=== PATIENT | female | born 1985 | race Asian ===

== ENCOUNTER 2019-08-31 00:13 | Inpatient (IN) | payer OTHER ==
[~2019-08-31] VITALS: Ht 147.3 cm; Wt 65.5 kg
[2019-08-31] VITALS (8 sets, daily range): BP systolic 134–151; BP diastolic 75–87
[2019-08-31 01:04] LABS: BASO # 0.1 x10^3/uL (0.0-0.2); BASO % 1 % (0-3); EOS # 0.2 x10^3/uL (0.0-0.7); EOS % 4 % (0-3); HEMATOCRIT 46.3 % (36.0-47.0); HEMOGLOBIN 15.9 g/dL (12.0-15.5); LYMPH # 2.4 x10^3/uL (1.0-4.8); LYMPH % 37 % (24-48); MEAN CORPUSCULAR HEMOGLOBIN 31 pg (25-35); MEAN CORPUSCULAR HGB CONC 34 g/dL (31-37); MEAN CORPUSCULAR VOLUME 90 fL (79-100); MONO # 0.4 x10^3/uL (0.0-1.1); MONO % 7 % (0-9); NEUT # 3.4 x10^3/uL (1.8-7.7); NEUT % 52 % (31-73); PLATELET COUNT 325 x10^3/uL (140-400); RED BLOOD COUNT 5.13 x10^6/uL (3.50-5.40); RED CELL DISTRIBUTION WIDTH 13.4 % (11.5-14.5); WHITE BLOOD COUNT 6.6 x10^3/uL (4.0-11.0)
[2019-08-31 01:12] LABS: BILIRUBIN,URINE NEGATIVE (NEG); CLARITY,URINE CLEAR; COLOR,URINE YELLOW; NITRITE,URINE NEGATIVE (NEG); PROTEIN,URINE NEGATIVE (NEG-TRACE)
[2019-08-31 01:17] LABS: CALCIUM 8.8 mg/dL (8.5-10.1); CREATININE 0.8 mg/dL (0.6-1.0); GFR 82.6; POTASSIUM 3.7 mmol/L (3.5-5.1)
[2019-08-31 01:19] LABS: BACTERIA,URINE MODERATE /HPF (0-FEW); RBC,URINE OCC /HPF (0-2); SQUAMOUS EPITHELIAL CELL,UR MOD /LPF
[2019-08-31 01:23] LABS: ALBUMIN/GLOBULIN RATIO 0.6 (1.0-1.7); TOTAL BILIRUBIN 0.3 mg/dL (0.2-1.0); TOTAL PROTEIN 7.7 g/dL (6.4-8.2)
[2019-08-31] MEDS ORDERED: MORPHINE SULFATE 4 MG/ML VIAL. IV ONE (02:00)
[2019-08-31] MEDS ORDERED: ONDANSETRON PF 4 MG/2 ML VIAL. IV ONE (02:00)
[2019-08-31] MEDS ORDERED: PIP/TAZO PER PHARMACY MC PRN (02:30)
[2019-08-31] MEDS ORDERED: CONTRAST GIVEN. MC PRN (02:45)
[2019-08-31] MEDS ORDERED: IOHEXOL 300 MG/ML 100ML VIAL. IV ONE (03:00)
--- NOTE | 2019-08-31 03:00 | RAD ---
Ultrasound the abdomen limited. HISTORY: Right upper quadrant tenderness, right upper quadrant pain Ultrasound was used to evaluate right upper quadrant of the abdomen. The mid pancreas was normal in appearance, portions of the head and tail of the pancreas were obscured. A liver lesion is not identified. Liver was normal in size. Mild fatty liver changes possible. There are gallstones in the gallbladder. Gallbladder wall was mildly thickened at 4 mm. Common duct is prominent measuring 1.1 cm. Right kidney was 12.5 cm in length without a mass or hydronephrosis. IMPRESSION: 1. Cholelithiasis with thickening of the gallbladder wall suggesting cholecystitis. 2. Dilated common duct. Electronically signed by: Justin Adrian MD (08/31/2019 2:57 AM) [facility]
[2019-08-31] MEDS: PIPERACILLIN/TAZOBACTAM 3.375 GM in IV NORMAL SALINE 50ML 50 ML IV SCH ×4 (03:04→18:43)
--- NOTE | 2019-08-31 03:15 | PHYS DOC ---
Past Medical History Past Medical History: Kidney Stone Past Surgical History: No Surgical History Smoking Status: Never Smoker Alcohol Use: None General Adult EDM: Chief Complaint: ABDOMINAL PAIN HPI: HPI: Patient is a 33 year old female who presents to the ED with a chief complaint of right upper abdominal tenderness. Patient states that the pain started around 10:00 this night. Patient recently delivered a baby 1 week ago. Patient does complain of nausea and abdominal pain. Patient denies fever, chills, anum sea, vomiting, chest pain, shortness of breath. Review of Systems: Review of Systems: Constitutional: Denies fever or chills. [] Eyes: Denies change in visual acuity. [] HENT: Denies nasal congestion or sore throat. [] Respiratory: Denies cough or shortness of breath. [] Cardiovascular: Denies chest pain or edema. [] GI: Complains of right upper quadrant tenderness [] : Denies dysuria. [] Neurologic: Denies headache, focal weakness or sensory changes. [] Heart Score: Risk Factors: Risk Factors: DM, Current or recent (<one month) smoker, HTN, HLP, family history of CAD, obesity. Risk Scores: Score 0 - 3: 2.5% MACE over next 6 weeks - Discharge Home Score 4 - 6: 20.3% MACE over next 6 weeks - Admit for Clinical Observation Score 7 - 10: 72.7% MACE over next 6 weeks - Early Invasive Strategies Current Medications: Current Medications Medications (Trade) Dose Ordered Sig/Sal Start Time Stop Time Status Last Admin Dose Admin Info (CONTRAST GIVEN -- Rx MONITORING) 1 each PRN DAILY PRN 08/31/19 02:45 09/02/19 02:44 Iohexol (Omnipaque 300 Mg/ml) 75 ml 1X ONCE 08/31/19 03:00 08/31/19 03:01 DC Morphine Sulfate (Morphine Sulfate) 4 mg 1X ONCE 08/31/19 02:00 08/31/19 02:01 DC 08/31/19 01:54 4 MG Ondansetron HCl (Zofran) 4 mg 1X ONCE 08/31/19 02:00 08/31/19 02:01 DC 08/31/19 01:54 4 MG Piperacillin Sod/ Tazobactam Sod (Zosyn Per Pharmacy) 1 each PRN DAILY PRN 08/31/19 02:30 Piperacillin Sod/ Tazobactam Sod 3.375 gm/Sodium Chloride 50 ml @ 100 mls/hr Q6HRS 08/31/19 02:30 08/31/19 03:04 100 MLS/HR Allergies: Allergies: Allergies Coded Allergies Type Severity Reaction Last Updated Verified No Known Drug Allergies 08/31/19 No Physical Exam: PE: Constitutional: Well developed, well nourished, no acute distress, non-toxic appearance. [] HENT: Normocephalic, atraumatic Eyes: EOMI Neck: Normal range of motion, Supple Cardiovascular: Heart rate regular rhythm Lungs & Thorax: Bilateral breath sounds clear to auscultation [] Abdomen: Right upper quadrant tenderness Extremities: No tenderness, ROM intact Neurologic: Alert and oriented X 3 Current Patient Data: Labs: Laboratory Tests Test 08/31/19 00:48 08/31/19 00:53 08/31/19 01:05 Urine Collection Type Unknown Urine Color Yellow Urine Clarity Clear Urine pH 6.0 (<5.0-8.0) Urine Specific [place] 1.015 (1.000-1.030) Urine Protein Negative mg/dL (NEG-TRACE) Urine Glucose (UA) Negative mg/dL (NEG) Urine Ketones (Stick) Negative mg/dL (NEG) Urine Blood Moderate (NEG) Urine Nitrite Negative (NEG) Urine Bilirubin Negative (NEG) Urine Urobilinogen Dipstick 1.0 mg/dL (0.2 mg/dL) Urine Leukocyte Esterase Small (NEG) Urine RBC Occ /HPF (0-2) Urine WBC 11-20 /HPF (0-4) Urine Squamous Epithelial Cells Mod /LPF Urine Bacteria Moderate /HPF (0-FEW) Urine Mucus Mod /LPF White Blood Count 6.6 x10^3/uL (4.0-11.0) Red Blood Count 5.13 x10^6/uL (3.50-5.40) Hemoglobin 15.9 g/dL (12.0-15.5) H Hematocrit 46.3 % (36.0-47.0) Mean Corpuscular Volume 90 fL (79-100) Mean Corpuscular Hemoglobin 31 pg (25-35) Mean Corpuscular Hemoglobin Concent 34 g/dL (31-37) Red Cell Distribution Width 13.4 % (11.5-14.5) Platelet Count 325 x10^3/uL (140-400) Neutrophils (%) (Auto) 52 % (31-73) Lymphocytes (%) (Auto) 37 % (24-48) Monocytes (%) (Auto) 7 % (0-9) Eosinophils (%) (Auto) 4 % (0-3) H Basophils (%) (Auto) 1 % (0-3) Neutrophils # (Auto) 3.4 x10^3/uL (1.8-7.7) Lymphocytes # (Auto) 2.4 x10^3/uL (1.0-4.8) Monocytes # (Auto) 0.4 x10^3/uL (0.0-1.1) Eosinophils # (Auto) 0.2 x10^3/uL (0.0-0.7) Basophils # (Auto) 0.1 x10^3/uL (0.0-0.2) Sodium Level 138 mmol/L (136-145) Potassium Level 3.7 mmol/L (3.5-5.1) Chloride Level 103 mmol/L (98-107) Carbon Dioxide Level 27 mmol/L (21-32) Anion Gap 8 (6-14) Blood Urea Nitrogen 13 mg/dL (7-20) Creatinine 0.8 mg/dL (0.6-1.0) Estimated GFR (Cockcroft-Gault) 82.6 BUN/Creatinine Ratio 16 (6-20) Glucose Level 115 mg/dL (70-99) H Lactic Acid Level 1.6 mmol/L (0.4-2.0) Calcium Level 8.8 mg/dL (8.5-10.1) Total Bilirubin 0.3 mg/dL (0.2-1.0) Aspartate Amino Transferase (AST) 59 U/L (15-37) H Alanine Aminotransferase (ALT) 51 U/L (14-59) Alkaline Phosphatase 122 U/L (46-116) H Total Protein 7.7 g/dL (6.4-8.2) Albumin 3.0 g/dL (3.4-5.0) L Albumin/Globulin Ratio 0.6 (1.0-1.7) L Lipase 139 U/L (73-393) POC Urine HCG, Qualitative Hcg positive (Negative) Laboratory Tests 08/31/19 00:53 Laboratory Tests 08/31/19 00:53 Vital Signs: Vital Signs Date Time Temp Pulse Resp B/P (MAP) Pulse Ox O2 Delivery O2 Flow Rate FiO2 08/31/19 01:54 16 98 Room Air 08/31/19 00:38 97.5 56 158/79 (105) 97.5 EKG: EKG: [] Radiology/Procedures: Radiology/Procedures: [] Impression: US ABDOMEN Ultrasound was used to evaluate right upper quadrant of the abdomen. The mid pancreas was normal in appearance, portions of the head and tail of the pancreas were obscured. A liver lesion is not identified. Liver was normal in size. Mild fatty liver changes possible. There are gallstones in the gallbladder. Gallbladder wall was mildly thickened at 4 mm. Common duct is prominent measuring 1.1 cm. Right kidney was 12.5 cm in length without a mass or hydronephrosis. IMPRESSION: 1. Cholelithiasis with thickening of the gallbladder wall suggesting cholecystitis. 2. Dilated common duct. CT ABD/PELVIS IMPRESSION: 1. Large uterus. 2. Decreased density towards the fundus which could be normal variation although retained products are possible. 3. Thickening of the gallbladder wall suggesting cholecystitis. 4. Dilated common duct. 5. Trace of pleural effusions with mild atelectasis in the lung bases. Course & Med Decision Making: Course & Med Decision Making Pertinent Labs and Imaging studies reviewed. (See chart for details) Ordered labs, ultrasound of the abdomen. Patient is given IV fluids, IV Zofran, IV morphine Ultrasound shows Ultrasound was used to evaluate right upper quadrant of the abdomen. The mid pancreas was normal in appearance, portions of the head and tail of the pancreas were obscured. A liver lesion is not identified. Liver was normal in size. Mild fatty liver changes possible. There are gallstones in the gallbladder. Gallbladder wall was mildly thickened at 4 mm. Common duct is prominent measuring 1.1 cm. Right kidney was 12.5 cm in length without a mass or hydronephrosis. IMPRESSION: 1. Cholelithiasis with thickening of the gallbladder wall suggesting cholecystitis. 2. Dilated common duct. I have also ordered a CT of the abdomen and pelvis. Patient will be admitted for further evaluation and treatment. I will discuss case with general surgery on-call. Discussed case with Dr. Gray. Patient will be admitted to the hospitalist service. Critical care: 35 minutes Time is inclusive of interpretation of labs, interpretation of imaging, consul tation with other physicians Patient needed continuous cardiovascular monitoring secondary to acute abdomen due to cholecystitis. Madelyn Disclaimer: Madelyn Disclaimer: This electronic medical record was generated, in whole or in part, using a voice recognition dictation system. Departure Departure Impression: Primary Impression: Cholecystitis Disposition: ADMITTED INPATIENT Admitting Physician: TRISHA Condition: GOOD Referrals: NO PCP (PCP) Justicifation of Admission Dx: Justifications for Admission: Justification of Admission Dx: Yes Comments: Acute Cholecystitis DARNELL SOTELO DO Aug 31, 2019 03:15
--- NOTE | 2019-08-31 04:08 | RAD ---
CT abdomen and pelvis with contrast. HISTORY: Cholecystitis CT abdomen pelvis was done using 75 mL Omnipaque 300 contrast. Lung bases are clear except for mild dependent atelectasis. There is a trace of pleural effusion on each side. There are 2 small nonspecific low-density foci in the spleen. A liver lesion is not identified. There is distention of the gallbladder with thickening of the gallbladder wall. This gallstones noted at ultrasound are not optimally visualized on CT. There is no mass or hydronephrosis in the kidneys. Adrenal glands are normal. A pancreatic lesion is not identified. Common duct is dilated. There is no adenopathy. There is no ascites. Appendix is normal. Uterus is enlarged possibly . There is low-density in the fundus of the uterus which could be just edema but retained products could have this pattern. There is moderate stool in the colon. Bladder is unremarkable. IMPRESSION: 1. Large uterus. 2. Decreased density towards the fundus which could be normal variation although retained products are possible. 3. Thickening of the gallbladder wall suggesting cholecystitis. 4. Dilated common duct. 5. Trace of pleural effusions with mild atelectasis in the lung bases. PQRS Compliance Statement: One or more of the following individualized dose reduction techniques were utilized for this examination: 1. Automated exposure control 2. Adjustment of the mA and/or kV according to patient size 3. Use of iterative reconstruction technique Electronically signed by: Justin Adrian MD (08/31/2019 4:06 AM) [facility]
--- NOTE | 2019-08-31 05:50 | NUR ---
Patient admitted to room 416 per wheelchair from ER. Admitting diagnosis: acute cholecysitis. Patient is alert and oriented x4. NPO. In no acute distress. surgical consult. Will continue to monitor.
[2019-08-31] MEDS ORDERED: ONDANSETRON PF 4 MG/2 ML VIAL. IVP PRN (09:15)
[2019-08-31] MEDS ORDERED: IV NORMAL SALINE 1000ML BAG 1,000 ML IV ONE (09:15)
--- NOTE | 2019-08-31 09:28 | PDOC2 ---
CONSULT Date of Consult Date of Consult DATE: 08/31/19 TIME: 09:24 Reason for Consult Reason for Consult: Cholecystitis Referring Physician Referring Physician: Brianda Identification/Chief Complaint Chief Complaint Abdominal pain Source Source: Chart review, Patient History of Present Illness Reason for Visit: 33-year-old [place] female interview conducted via machining engineer. She complains of right upper quadrant abdominal pain with some nausea. Recently delivered a baby 1 week ago vaginally since that time is had abdominal discomfort Past Medical History Cardiovascular: No pertinent hx Pulmonary: No pertinent hx GI: No pertinent hx Heme/Onc: No pertinent hx Hepatobiliary: No pertinent hx Psych: No pertinent hx Rheumatologic: No pertinent hx Infectious disease: No pertinent hx ENT: No pertinent hx Renal/: No pertinent hx Endocrine: No pertinent hx Dermatology: No pertinent hx Past Surgical History Past Surgical History: No pertinent history Family History Family History: No Significant Social History No ALCOHOL: none Drugs: None Lives: with Family Current Problem List Problem List Problems Medical Problems: (1) Cholecystitis Status: Acute Current Medications Current Medications Current Medications Ondansetron HCl (Zofran) 4 mg 1X ONCE IV Last administered on 08/31/19at 01:54; Start 08/31/19 at 02:00; Stop 08/31/19 at 02:01; Status DC Morphine Sulfate (Morphine Sulfate) 4 mg 1X ONCE IV Last administered on 08/31/19at 01:54; Start 08/31/19 at 02:00; Stop 08/31/19 at 02:01; Status DC Piperacillin Sod/ Tazobactam Sod (Zosyn Per Pharmacy) 1 each PRN DAILY PRN MC SEE COMMENTS; Start 08/31/19 at 02:30 Iohexol (Omnipaque 300 Mg/ml) 75 ml 1X ONCE IV ; Start 08/31/19 at 03:00; Stop 08/31/19 at 03:01; Status DC Piperacillin Sod/ Tazobactam Sod 3.375 gm/Sodium Chloride 50 ml @ 100 mls/hr Q6HRS IV Last administered on 08/31/19at 06:47; Start 08/31/19 at 02:30 Info (CONTRAST GIVEN -- Rx MONITORING) 1 each PRN DAILY PRN MC SEE COMMENTS; Start 08/31/19 at 02:45; Stop 09/02/19 at 02:44 Morphine Sulfate (Morphine Sulfate) 4 mg PRN Q2HR PRN IV PAIN; Start 08/31/19 at 09:15 Ondansetron HCl (Zofran) 4 mg PRN Q6HRS PRN IVP NAUSEA/VOMITING; Start 08/31/19 at 09:15 Sodium Chloride 1,000 ml @ 150 mls/hr Q6H40M IV ; Start 08/31/19 at 09:15 Sodium Chloride 1,000 ml @ 1,000 mls/hr 1X ONCE IV ; Start 08/31/19 at 09:15; Stop 08/31/19 at 10:14 Allergies Allergies: Coded Allergies: No Known Drug Allergies (Unverified , 08/31/19) ROS Gastrointestinal: Yes Nausea, Yes Abdominal Pain Physical Exam General: Alert, Oriented X3, Cooperative, moderate distress HEENT: Atraumatic Lungs: Clear to auscultation, Normal air movement Heart: Regular rate, No murmurs Abdomen: Normal bowel sounds, Soft, Other (Tender palpation right upper quadrant) Extremities: No edema Skin: No significant lesion Neuro: Normal speech Psych/Mental Status: Mental status NL Vitals VITALS Vital Signs Date Time Temp Pulse Resp B/P (MAP) Pulse Ox O2 Delivery O2 Flow Rate FiO2 08/31/19 07:00 98.2 50 16 148/84 (105) 96 Room Air 98.2 Labs Labs Laboratory Tests Test 08/31/19 00:48 08/31/19 00:53 08/31/19 01:05 Urine Collection Type Unknown Urine Color Yellow Urine Clarity Clear Urine pH 6.0 (<5.0-8.0) Urine Specific [place] 1.015 (1.000-1.030) Urine Protein Negative mg/dL (NEG-TRACE) Urine Glucose (UA) Negative mg/dL (NEG) Urine Ketones (Stick) Negative mg/dL (NEG) Urine Blood Moderate (NEG) Urine Nitrite Negative (NEG) Urine Bilirubin Negative (NEG) Urine Urobilinogen Dipstick 1.0 mg/dL (0.2 mg/dL) Urine Leukocyte Esterase Small (NEG) Urine RBC Occ /HPF (0-2) Urine WBC 11-20 /HPF (0-4) Urine Squamous Epithelial Cells Mod /LPF Urine Bacteria Moderate /HPF (0-FEW) Urine Mucus Mod /LPF White Blood Count 6.6 x10^3/uL (4.0-11.0) Red Blood Count 5.13 x10^6/uL (3.50-5.40) Hemoglobin 15.9 g/dL (12.0-15.5) Hematocrit 46.3 % (36.0-47.0) Mean Corpuscular Volume 90 fL (79-100) Mean Corpuscular Hemoglobin 31 pg (25-35) Mean Corpuscular Hemoglobin Concent 34 g/dL (31-37) Red Cell Distribution Width 13.4 % (11.5-14.5) Platelet Count 325 x10^3/uL (140-400) Neutrophils (%) (Auto) 52 % (31-73) Lymphocytes (%) (Auto) 37 % (24-48) Monocytes (%) (Auto) 7 % (0-9) Eosinophils (%) (Auto) 4 % (0-3) Basophils (%) (Auto) 1 % (0-3) Neutrophils # (Auto) 3.4 x10^3/uL (1.8-7.7) Lymphocytes # (Auto) 2.4 x10^3/uL (1.0-4.8) Monocytes # (Auto) 0.4 x10^3/uL (0.0-1.1) Eosinophils # (Auto) 0.2 x10^3/uL (0.0-0.7) Basophils # (Auto) 0.1 x10^3/uL (0.0-0.2) Sodium Level 138 mmol/L (136-145) Potassium Level 3.7 mmol/L (3.5-5.1) Chloride Level 103 mmol/L (98-107) Carbon Dioxide Level 27 mmol/L (21-32) Anion Gap 8 (6-14) Blood Urea Nitrogen 13 mg/dL (7-20) Creatinine 0.8 mg/dL (0.6-1.0) Estimated GFR (Cockcroft-Gault) 82.6 BUN/Creatinine Ratio 16 (6-20) Glucose Level 115 mg/dL (70-99) Lactic Acid Level 1.6 mmol/L (0.4-2.0) Calcium Level 8.8 mg/dL (8.5-10.1) Total Bilirubin 0.3 mg/dL (0.2-1.0) Aspartate Amino Transf (AST/SGOT) 59 U/L (15-37) Alanine Aminotransferase (ALT/SGPT) 51 U/L (14-59) Alkaline Phosphatase 122 U/L (46-116) Total Protein 7.7 g/dL (6.4-8.2) Albumin 3.0 g/dL (3.4-5.0) Albumin/Globulin Ratio 0.6 (1.0-1.7) Lipase 139 U/L (73-393) Bedside Urine HCG, Qualitative Hcg positive (Negative) Laboratory Tests Test 08/31/19 00:48 08/31/19 00:53 08/31/19 01:05 Urine Collection Type Unknown Urine Color Yellow Urine Clarity Clear Urine pH 6.0 (<5.0-8.0) Urine Specific [place] 1.015 (1.000-1.030) Urine Protein Negative mg/dL (NEG-TRACE) Urine Glucose (UA) Negative mg/dL (NEG) Urine Ketones (Stick) Negative mg/dL (NEG) Urine Blood Moderate (NEG) Urine Nitrite Negative (NEG) Urine Bilirubin Negative (NEG) Urine Urobilinogen Dipstick 1.0 mg/dL (0.2 mg/dL) Urine Leukocyte Esterase Small (NEG) Urine RBC Occ /HPF (0-2) Urine WBC 11-20 /HPF (0-4) Urine Squamous Epithelial Cells Mod /LPF Urine Bacteria Moderate /HPF (0-FEW) Urine Mucus Mod /LPF White Blood Count 6.6 x10^3/uL (4.0-11.0) Red Blood Count 5.13 x10^6/uL (3.50-5.40) Hemoglobin 15.9 g/dL (12.0-15.5) Hematocrit 46.3 % (36.0-47.0) Mean Corpuscular Volume 90 fL (79-100) Mean Corpuscular Hemoglobin 31 pg (25-35) Mean Corpuscular Hemoglobin Concent 34 g/dL (31-37) Red Cell Distribution Width 13.4 % (11.5-14.5) Platelet Count 325 x10^3/uL (140-400) Neutrophils (%) (Auto) 52 % (31-73) Lymphocytes (%) (Auto) 37 % (24-48) Monocytes (%) (Auto) 7 % (0-9) Eosinophils (%) (Auto) 4 % (0-3) Basophils (%) (Auto) 1 % (0-3) Neutrophils # (Auto) 3.4 x10^3/uL (1.8-7.7) Lymphocytes # (Auto) 2.4 x10^3/uL (1.0-4.8) Monocytes # (Auto) 0.4 x10^3/uL (0.0-1.1) Eosinophils # (Auto) 0.2 x10^3/uL (0.0-0.7) Basophils # (Auto) 0.1 x10^3/uL (0.0-0.2) Sodium Level 138 mmol/L (136-145) Potassium Level 3.7 mmol/L (3.5-5.1) Chloride Level 103 mmol/L (98-107) Carbon Dioxide Level 27 mmol/L (21-32) Anion Gap 8 (6-14) Blood Urea Nitrogen 13 mg/dL (7-20) Creatinine 0.8 mg/dL (0.6-1.0) Estimated GFR (Cockcroft-Gault) 82.6 BUN/Creatinine Ratio 16 (6-20) Glucose Level 115 mg/dL (70-99) Lactic Acid Level 1.6 mmol/L (0.4-2.0) Calcium Level 8.8 mg/dL (8.5-10.1) Total Bilirubin 0.3 mg/dL (0.2-1.0) Aspartate Amino Transf (AST/SGOT) 59 U/L (15-37) Alanine Aminotransferase (ALT/SGPT) 51 U/L (14-59) Alkaline Phosphatase 122 U/L (46-116) Total Protein 7.7 g/dL (6.4-8.2) Albumin 3.0 g/dL (3.4-5.0) Albumin/Globulin Ratio 0.6 (1.0-1.7) Lipase 139 U/L (73-393) Bedside Urine HCG, Qualitative Hcg positive (Negative) Images Images Ultrasound and CT scan show signs consistent with acute cholecystitis with thickened gallbladder wall and sludge within the gallbladder she also has mildly dilated common bile duct Assessment/Plan Assessment/Plan Acute cholecystitis plan for laparoscopic cholecystectomy with intraoperative cholangiograms this was discussed with the patient through an machining engineer WILTON NANCE MD Aug 31, 2019 09:28
--- NOTE | 2019-08-31 09:40 | PDOC1 ---
History and Physical Date of Admission Date of Admission DATE: 08/31/19 TIME: 09:34 Source Source: Chart review, Patient History of Present Illness History of Present Illness Tanisha Marrero, is a 33 year old female who presents to the ED with a chief complaint of right upper abdominal tenderness. Patient states that the pain started around 10:00 this night. Patient recently delivered a baby 1 week ago. Patient does complain of nausea and abdominal pain. Patient denies fever, chills, nausea, vomiting, chest pain, shortness of breath. I called [facility] and had a resident review the chart from 6 days ago, DC home after normal vaginal delivery. No abx given, she did well and had no complications Past Medical History Cardiovascular: No pertinent hx Pulmonary: No pertinent hx GI: No pertinent hx Heme/Onc: No pertinent hx Hepatobiliary: No pertinent hx Psych: No pertinent hx Rheumatologic: No pertinent hx Infectious disease: No pertinent hx ENT: No pertinent hx Renal/: No pertinent hx Endocrine: No pertinent hx Dermatology: No pertinent hx Past Surgical History Past Surgical History: No pertinent history Family History Family History: No Significant Social History Smoke: No ALCOHOL: none Drugs: None Current Problem List Problem List Problems Medical Problems: (1) Cholecystitis Status: Acute Current Medications Current Medications Current Medications Ondansetron HCl (Zofran) 4 mg 1X ONCE IV Last administered on 08/31/19at 01:54; Start 08/31/19 at 02:00; Stop 08/31/19 at 02:01; Status DC Morphine Sulfate (Morphine Sulfate) 4 mg 1X ONCE IV Last administered on 08/31/19at 01:54; Start 08/31/19 at 02:00; Stop 08/31/19 at 02:01; Status DC Piperacillin Sod/ Tazobactam Sod (Zosyn Per Pharmacy) 1 each PRN DAILY PRN MC SEE COMMENTS; Start 08/31/19 at 02:30 Iohexol (Omnipaque 300 Mg/ml) 75 ml 1X ONCE IV ; Start 08/31/19 at 03:00; Stop 08/31/19 at 03:01; Status DC Piperacillin Sod/ Tazobactam Sod 3.375 gm/Sodium Chloride 50 ml @ 100 mls/hr Q6HRS IV Last administered on 08/31/19at 06:47; Start 08/31/19 at 02:30 Info (CONTRAST GIVEN -- Rx MONITORING) 1 each PRN DAILY PRN MC SEE COMMENTS; Start 08/31/19 at 02:45; Stop 09/02/19 at 02:44 Morphine Sulfate (Morphine Sulfate) 4 mg PRN Q2HR PRN IV PAIN; Start 08/31/19 at 09:15 Ondansetron HCl (Zofran) 4 mg PRN Q6HRS PRN IVP NAUSEA/VOMITING; Start 08/31/19 at 09:15 Sodium Chloride 1,000 ml @ 150 mls/hr Q6H40M IV ; Start 08/31/19 at 09:15 Sodium Chloride 1,000 ml @ 1,000 mls/hr 1X ONCE IV ; Start 08/31/19 at 09:15; Stop 08/31/19 at 10:14 Allergies Allergies: Coded Allergies: No Known Drug Allergies (Unverified , 08/31/19) ROS General: No: Chills, Night Sweats, Fatigue, Malaise, Appetite, Other PSYCHOLOGICAL ROS: No: Anxiety, Behavioral Disorder, Concentration difficultie, Decreased libido, Depression, Disorientation, Hallucinations, Hostility, Irritablity, Memory difficulties, Mood Swings, Obsessive thoughts, Physical abuse, Sexual abuse, Sleep disturbances, Suicidal ideation, Other Eyes: No Blurry vision, No Decreased vision, No Double vision, No Dry eyes, No Excessive tearing, No Eye Pain, No Itchy Eyes, No Loss of vision, No Photophobia, No Scotomata, No Uses contacts, No Uses glasses, No Other HEENT: No: Heacaches, Visual Changes, Hearing change, Nasal congestion, Nasal discharge, Oral lesions, Sinus pain, Sore Throat, Epistaxis, Sneezing, Snoring, Tinnitus, Vertigo, Vocal changes, Other Respiratory: No: Cough, Hemoptysis, Orthopnea, Pleuritic Pain, Shortness of breath, SOB with excertion, Sputum Changes, Stridor, Tachypnea, Wheezing, Other Cardiovascular: No Chest Pain, No Palpitations, No Orthopnea, No Paroxysmal Noc. Dyspnea, No Edema, No Lt Headedness, No Other Gastrointestinal: No Nausea, No Vomiting, No Abdominal Pain, No Diarrhea, No Constipation, No Melena, No Hematochezia, No Other Genitourinary: No Dysuria, No Frequency, No Incontinence, No Hematuria, No Retention, No Discharge, No Urgency, No Pain, No Flank Pain, No Other, No , No , No , No , No , No , No Musculoskeletal: No Gait Disturbance, No Joint Pain, No Joint Stiffness, No Joint Swelling, No Muscle Pain, No Muscular Weakness, No Pain In:, No Swelling In:, No Other Neurological: No Behavorial Changes, No Bowel/Bladder ControlChng, No Confusion, No Dizziness, No Gait Disturbance, No Headaches, No Impaired Coord/balance, No Memory Loss, No Numbness/Tingling, No Seizures, No Speech Problems, No Tremors, No Visual Changes, No Weakness, No Other Skin: Yes Dry Skin; No Eczema, No Hair Changes, No Lumps, No Mole Changes, No Mottling, No Nail Changes, No Pruritus, No Rash, No Skin Lesion Changes, No Other, No Acne Physical Exam General: Alert, Oriented X3, Cooperative, No acute distress HEENT: Atraumatic, PERRLA Lungs: Clear to auscultation Heart: S1S2, RRR, no murmurs Abdomen: Normal bowel sounds, Soft Extremities: No clubbing, No edema Skin: No breakdown Neuro: Normal speech, Normal tone, Sensation intact Psych/Mental Status: Mental status NL, Mood NL Vitals Vitals Vital Signs Date Time Temp Pulse Resp B/P (MAP) Pulse Ox O2 Delivery O2 Flow Rate FiO2 08/31/19 07:00 98.2 50 16 148/84 (105) 96 Room Air 98.2 Labs Labs Laboratory Tests Test 08/31/19 00:48 08/31/19 00:53 08/31/19 01:05 Urine Collection Type Unknown Urine Color Yellow Urine Clarity Clear Urine pH 6.0 (<5.0-8.0) Urine Specific [place] 1.015 (1.000-1.030) Urine Protein Negative mg/dL (NEG-TRACE) Urine Glucose (UA) Negative mg/dL (NEG) Urine Ketones (Stick) Negative mg/dL (NEG) Urine Blood Moderate (NEG) Urine Nitrite Negative (NEG) Urine Bilirubin Negative (NEG) Urine Urobilinogen Dipstick 1.0 mg/dL (0.2 mg/dL) Urine Leukocyte Esterase Small (NEG) Urine RBC Occ /HPF (0-2) Urine WBC 11-20 /HPF (0-4) Urine Squamous Epithelial Cells Mod /LPF Urine Bacteria Moderate /HPF (0-FEW) Urine Mucus Mod /LPF White Blood Count 6.6 x10^3/uL (4.0-11.0) Red Blood Count 5.13 x10^6/uL (3.50-5.40) Hemoglobin 15.9 g/dL (12.0-15.5) Hematocrit 46.3 % (36.0-47.0) Mean Corpuscular Volume 90 fL (79-100) Mean Corpuscular Hemoglobin 31 pg (25-35) Mean Corpuscular Hemoglobin Concent 34 g/dL (31-37) Red Cell Distribution Width 13.4 % (11.5-14.5) Platelet Count 325 x10^3/uL (140-400) Neutrophils (%) (Auto) 52 % (31-73) Lymphocytes (%) (Auto) 37 % (24-48) Monocytes (%) (Auto) 7 % (0-9) Eosinophils (%) (Auto) 4 % (0-3) Basophils (%) (Auto) 1 % (0-3) Neutrophils # (Auto) 3.4 x10^3/uL (1.8-7.7) Lymphocytes # (Auto) 2.4 x10^3/uL (1.0-4.8) Monocytes # (Auto) 0.4 x10^3/uL (0.0-1.1) Eosinophils # (Auto) 0.2 x10^3/uL (0.0-0.7) Basophils # (Auto) 0.1 x10^3/uL (0.0-0.2) Sodium Level 138 mmol/L (136-145) Potassium Level 3.7 mmol/L (3.5-5.1) Chloride Level 103 mmol/L (98-107) Carbon Dioxide Level 27 mmol/L (21-32) Anion Gap 8 (6-14) Blood Urea Nitrogen 13 mg/dL (7-20) Creatinine 0.8 mg/dL (0.6-1.0) Estimated GFR (Cockcroft-Gault) 82.6 BUN/Creatinine Ratio 16 (6-20) Glucose Level 115 mg/dL (70-99) Lactic Acid Level 1.6 mmol/L (0.4-2.0) Calcium Level 8.8 mg/dL (8.5-10.1) Total Bilirubin 0.3 mg/dL (0.2-1.0) Aspartate Amino Transf (AST/SGOT) 59 U/L (15-37) Alanine Aminotransferase (ALT/SGPT) 51 U/L (14-59) Alkaline Phosphatase 122 U/L (46-116) Total Protein 7.7 g/dL (6.4-8.2) Albumin 3.0 g/dL (3.4-5.0) Albumin/Globulin Ratio 0.6 (1.0-1.7) Lipase 139 U/L (73-393) Bedside Urine HCG, Qualitative Hcg positive (Negative) Laboratory Tests Test 08/31/19 00:48 08/31/19 00:53 08/31/19 01:05 Urine Collection Type Unknown Urine Color Yellow Urine Clarity Clear Urine pH 6.0 (<5.0-8.0) Urine Specific [place] 1.015 (1.000-1.030) Urine Protein Negative mg/dL (NEG-TRACE) Urine Glucose (UA) Negative mg/dL (NEG) Urine Ketones (Stick) Negative mg/dL (NEG) Urine Blood Moderate (NEG) Urine Nitrite Negative (NEG) Urine Bilirubin Negative (NEG) Urine Urobilinogen Dipstick 1.0 mg/dL (0.2 mg/dL) Urine Leukocyte Esterase Small (NEG) Urine RBC Occ /HPF (0-2) Urine WBC 11-20 /HPF (0-4) Urine Squamous Epithelial Cells Mod /LPF Urine Bacteria Moderate /HPF (0-FEW) Urine Mucus Mod /LPF White Blood Count 6.6 x10^3/uL (4.0-11.0) Red Blood Count 5.13 x10^6/uL (3.50-5.40) Hemoglobin 15.9 g/dL (12.0-15.5) Hematocrit 46.3 % (36.0-47.0) Mean Corpuscular Volume 90 fL (79-100) Mean Corpuscular Hemoglobin 31 pg (25-35) Mean Corpuscular Hemoglobin Concent 34 g/dL (31-37) Red Cell Distribution Width 13.4 % (11.5-14.5) Platelet Count 325 x10^3/uL (140-400) Neutrophils (%) (Auto) 52 % (31-73) Lymphocytes (%) (Auto) 37 % (24-48) Monocytes (%) (Auto) 7 % (0-9) Eosinophils (%) (Auto) 4 % (0-3) Basophils (%) (Auto) 1 % (0-3) Neutrophils # (Auto) 3.4 x10^3/uL (1.8-7.7) Lymphocytes # (Auto) 2.4 x10^3/uL (1.0-4.8) Monocytes # (Auto) 0.4 x10^3/uL (0.0-1.1) Eosinophils # (Auto) 0.2 x10^3/uL (0.0-0.7) Basophils # (Auto) 0.1 x10^3/uL (0.0-0.2) Sodium Level 138 mmol/L (136-145) Potassium Level 3.7 mmol/L (3.5-5.1) Chloride Level 103 mmol/L (98-107) Carbon Dioxide Level 27 mmol/L (21-32) Anion Gap 8 (6-14) Blood Urea Nitrogen 13 mg/dL (7-20) Creatinine 0.8 mg/dL (0.6-1.0) Estimated GFR (Cockcroft-Gault) 82.6 BUN/Creatinine Ratio 16 (6-20) Glucose Level 115 mg/dL (70-99) Lactic Acid Level 1.6 mmol/L (0.4-2.0) Calcium Level 8.8 mg/dL (8.5-10.1) Total Bilirubin 0.3 mg/dL (0.2-1.0) Aspartate Amino Transf (AST/SGOT) 59 U/L (15-37) Alanine Aminotransferase (ALT/SGPT) 51 U/L (14-59) Alkaline Phosphatase 122 U/L (46-116) Total Protein 7.7 g/dL (6.4-8.2) Albumin 3.0 g/dL (3.4-5.0) Albumin/Globulin Ratio 0.6 (1.0-1.7) Lipase 139 U/L (73-393) Bedside Urine HCG, Qualitative Hcg positive (Negative) VTE Prophylaxis Ordered VTE Prophylaxis Devices: Yes VTE Pharmacological Prophylaxi: No Assessment/Plan Assessment/Plan acute abd pain, RUQ abd pain, acute sheila, zosyn started in ER, will cont until surg 1 week post- normal vaginal delivery, not complicated she is breast feeding, will pump and dump for now admit Justicifation of Admission Dx: Justifications for Admission: Justification of Admission Dx: Yes LEONARD JUÁERZ MD Aug 31, 2019 09:40
[2019-08-31] MEDS: MORPHINE SULFATE 4 MG/ML VIAL. IV PRN ×2 (09:57→14:58)
[2019-08-31] MEDS: IV NORMAL SALINE 1000ML BAG 1,000 ML IV SCH ×3 (09:59→22:35)
[2019-08-31] MEDS ORDERED: LIDOCAINE 2% PF 5 ML VIAL. ONE (14:29)
[2019-08-31] MEDS ORDERED: PROPOFOL 10 MG/ML (20ML) VIAL. IV ONE (14:29)
[2019-08-31] MEDS ORDERED: ONDANSETRON PF 4 MG/2 ML VIAL. ONE (14:30)
[2019-08-31] MEDS ORDERED: DEXAMETHASONE SOD PHOS 4 MG/ML VIAL ONE (14:30)
[2019-08-31] MEDS ORDERED: GLYCOPYRROLATE 1 MG/5 ML VIAL. ONE (14:31)
[2019-08-31] MEDS ORDERED: ROCURONIUM 50 MG/5 ML VIAL. ONE (14:34)
[2019-08-31] MEDS ORDERED: SUCCINYLCHOLINE 200 MG/10 ML VIAL. ONE (14:34)
[2019-08-31] MEDS ORDERED: fentaNYL PF VIAL 100 MCG/2 ML VIAL ONE ×3 (14:35→21:49)
[2019-08-31] MEDS ORDERED: IV RINGERS,LACTATED 1000ML 1,000 ML IV SCH ×2 (15:06→22:00)
[2019-08-31] MEDS ORDERED: SURGICEL HEMOSTAT 4X8 EACH. ONE (15:08)
[2019-08-31] MEDS ORDERED: IOHEXOL 300 MG/ML 50 ML VIAL. ONE (15:08)
[2019-08-31] MEDS ORDERED: PROCHLORPERAZINE 10 MG/2 ML VIAL. IV PRN (15:15)
[2019-08-31] MEDS ORDERED: BUPIVACAINE-EPI 0.25%-1:200000 MPF 30 ML VIAL. INJ ONE (15:15)
[2019-08-31] MEDS ORDERED: MIDAZOLAM HCL/PF 2 MG/2 ML VIAL. ONE (15:29)
--- NOTE | 2019-08-31 17:27 | NUR ---
pt left for surgery at 171
[2019-08-31] MEDS ORDERED: NEOSTIGMINE METHYLSULFATE 5 MG/5 ML SYRINGE. ONE (20:26)
[2019-08-31] MEDS ORDERED: PHENYLEPHRINE in 0.9% NACL PF 1 MG/10 ML SYRINGE. IV ONE (20:48)
[2019-08-31] MEDS: LACTOBACILLUS RHAMNOSUS GG 1 CAPSULE. PO SCH (21:00)
[2019-08-31] MEDS ORDERED: SEVOFLURANE 61 TO 120 MINUTES. IH ONE (21:02)
[2019-08-31] MEDS ORDERED: SEVOFLURANE 31 TO 60 MINUTES. IH ONE (21:05)
--- NOTE | 2019-08-31 21:13 | PDOC4 ---
Operative Note Operative Note Date: August 31, 2019 at 2110 Preoperative diagnosis: Acute cholecystitis Postoperative diagnosis: Same Procedure: Laparoscopic cholecystectomy with intraoperative cholangiograms Surgeon: Isaac Specimen: Gallbladder Dictation: Patient is 33-year-old female's been to the hospital with right upper quadrant abdominal pain and a ultrasound showing distended gallbladder with stones and mildly dilated common bile duct. Through an clothing worker the procedu re of laparoscopic cholecystectomy was explained to the patient detail was benefits were also discussed including bleeding infection injury to intra- abdominal contents possibly necessitating further or open operations alternatives to this procedure also discussed with the patient who seemed to understand and gave both verbal and written consent to have the procedure performed. Patient was taken to the operating room placed in supine position general anesthesia was initiated once patient was sleeping intubated her abdomen was prepped and draped usual sterile fashion using ChloraPrep. An area just below the umbilicus was injected with quarter percent Marcaine with epinephrine incision was made 11 blade scalpel and a varies needle was placed within the abdomen creating pneumoperitoneum once this was complete 11 mm port was placed and 5 mm camera was placed within the abdomen. Was noted the gallbladder is quite distended a 5 mm port was placed in the epigastrium a 5 mm port was placed in the right midabdomen and a 5 mm port was placed in the right lateral abdomen. The gallbladder was aspirated of its contents and a grasper was placed on the dome of the gallbladder which was retracted cephalad the infundibulum gallbladder is grasped retracted laterally exposing the triangle adherent tissues of the triangle were taken down exposing the cystic duct and cystic artery the duct was clipped on the gallbladder side and partially open with Endo Neema scissors cholangiogram catheter was placed to the anterior abdominal wall through a 14-gauge Angiocath was placed within the cystic duct clipped into place and flushed with normal saline cholangiogram was shot which showed good antegrade and retrograde flow of contrast material into the hepatic radicles and a small amount into the duodenum. Cholangiogram catheter was then removed the duct was doubly clipped and transected the gallbladder was then taken off the liver with hook electrocautery placed in Endo Catch bag moving the umbilicus the right upper quadrant was irrigated and suctioned dry hemostasis deemed to be appropriate the pneumoperitoneum was reduced all ports were removed the fascial defect at the umbilicus was closed with a [id number] 0 Vicryl suture and the skin was reapproximated all port sites for subcuticular Monocryl Mastisol Steri-Strips and island dressings were applied. Patient was awakened and extubated in the operating room taken to recovery in stable condition all sponge instrument needle counts listed as correct estimated blood loss 20 mL WILTON NANCE MD Aug 31, 2019 21:13
--- NOTE | 2019-08-31 21:47 | RAD ---
Examination: CHOLANGIOGRAM INTRAOPERATIVE History: Reason: OR Grams FT=0.2 min / Spl. Instructions: / History: Comparison/Correlation: None Findings: Fluoroscopy was utilized for 0.2 minutes. A total of 2 fluoroscopic images were provided. Cholecystectomy noted. Common bile duct and common hepatic duct level distended with contrast. No extravasation identified about the cystic duct remnant. No suspicious lytic defect involving the common bile duct. No stricture delineated. The minimal contrast present within the duodenum. The level of the sphincter of Mark is not fully included on this exam. Impression: No suspicious filling defects identified within the common bile duct. Electronically signed by: Kavin Velasquez MD (08/31/2019 9:44 PM) [facility]
[2019-08-31] MEDS ORDERED: fentaNYL PF VIAL 100 MCG/2 ML VIAL IVP PRN ×2 (22:00→22:15)
[2019-09-01] VITALS (10 sets, daily range): BP systolic 120–154; BP diastolic 66–80
[2019-09-01] MEDS: PIPERACILLIN/TAZOBACTAM 3.375 GM in IV NORMAL SALINE 50ML 50 ML IV SCH ×3 (00:24→12:15)
[2019-09-01] MEDS: oxyCODONE/APAP 5/325 1 TAB TABLET PO PRN ×4 (02:57→16:24)
[2019-09-01 05:44] LABS: ALBUMIN 2.6 g/dL (3.4-5.0); ALBUMIN/GLOBULIN RATIO 0.6 (1.0-1.7); CREATININE 0.7 mg/dL (0.6-1.0); GFR 96.4; POTASSIUM 3.8 mmol/L (3.5-5.1); TOTAL BILIRUBIN 0.5 mg/dL (0.2-1.0)
[2019-09-01] MEDS: IV NORMAL SALINE 1000ML BAG 1,000 ML IV SCH ×2 (05:56→11:55)
[2019-09-01] MEDS: LACTOBACILLUS RHAMNOSUS GG 1 CAPSULE. PO SCH (08:17)
--- NOTE | 2019-09-01 08:21 | PDOC ---
SURGICAL PROGRESS NOTE Subjective Patient doing well this morning tolerating diet minimal pain Vital Signs Vital Signs Date Time Temp Pulse Resp B/P (MAP) Pulse Ox O2 Delivery O2 Flow Rate FiO2 09/01/19 08:17 Room Air 09/01/19 04:00 68 120/69 (86) 97 2.0 08/31/19 22:59 97.4 18 97.4 I&O Intake and Output 09/01/19 07:00 Intake Total 3750 ml Output Total 2420 ml Balance 1330 ml Intake Oral 500 ml IV Total 3250 ml Output Urine Total 2400 ml Estimated Blood Loss 20 ml # Voids 1 PATIENT HAS A MASTERS: No General: Alert, Oriented X3, Cooperative, mild distress Abdomen: Normal bowel sounds, Soft, Other (Mild incisional tenderness wounds clean dry and intact) Labs Laboratory Tests Test 08/31/19 00:48 08/31/19 00:53 08/31/19 01:05 08/31/19 04:40 Urine Collection Type Unknown Urine Color Yellow Urine Clarity Clear Urine pH 6.0 (<5.0-8.0) Urine Specific [place] 1.015 (1.000-1.030) Urine Protein Negative mg/dL (NEG-TRACE) Urine Glucose (UA) Negative mg/dL (NEG) Urine Ketones (Stick) Negative mg/dL (NEG) Urine Blood Moderate (NEG) Urine Nitrite Negative (NEG) Urine Bilirubin Negative (NEG) Urine Urobilinogen Dipstick 1.0 mg/dL (0.2 mg/dL) Urine Leukocyte Esterase Small (NEG) Urine RBC Occ /HPF (0-2) Urine WBC 11-20 /HPF (0-4) Urine Squamous Epithelial Cells Mod /LPF Urine Bacteria Moderate /HPF (0-FEW) Urine Mucus Mod /LPF White Blood Count 6.6 x10^3/uL (4.0-11.0) Red Blood Count 5.13 x10^6/uL (3.50-5.40) Hemoglobin 15.9 g/dL (12.0-15.5) Hematocrit 46.3 % (36.0-47.0) Mean Corpuscular Volume 90 fL (79-100) Mean Corpuscular Hemoglobin 31 pg (25-35) Mean Corpuscular Hemoglobin Concent 34 g/dL (31-37) Red Cell Distribution Width 13.4 % (11.5-14.5) Platelet Count 325 x10^3/uL (140-400) Neutrophils (%) (Auto) 52 % (31-73) Lymphocytes (%) (Auto) 37 % (24-48) Monocytes (%) (Auto) 7 % (0-9) Eosinophils (%) (Auto) 4 % (0-3) Basophils (%) (Auto) 1 % (0-3) Neutrophils # (Auto) 3.4 x10^3/uL (1.8-7.7) Lymphocytes # (Auto) 2.4 x10^3/uL (1.0-4.8) Monocytes # (Auto) 0.4 x10^3/uL (0.0-1.1) Eosinophils # (Auto) 0.2 x10^3/uL (0.0-0.7) Basophils # (Auto) 0.1 x10^3/uL (0.0-0.2) Sodium Level 138 mmol/L (136-145) Potassium Level 3.7 mmol/L (3.5-5.1) Chloride Level 103 mmol/L (98-107) Carbon Dioxide Level 27 mmol/L (21-32) Anion Gap 8 (6-14) Blood Urea Nitrogen 13 mg/dL (7-20) Creatinine 0.8 mg/dL (0.6-1.0) Estimated GFR (Cockcroft-Gault) 82.6 BUN/Creatinine Ratio 16 (6-20) Glucose Level 115 mg/dL (70-99) Lactic Acid Level 1.6 mmol/L (0.4-2.0) Calcium Level 8.8 mg/dL (8.5-10.1) Total Bilirubin 0.3 mg/dL (0.2-1.0) Aspartate Amino Transf (AST/SGOT) 59 U/L (15-37) Alanine Aminotransferase (ALT/SGPT) 51 U/L (14-59) Alkaline Phosphatase 122 U/L (46-116) Total Protein 7.7 g/dL (6.4-8.2) Albumin 3.0 g/dL (3.4-5.0) Albumin/Globulin Ratio 0.6 (1.0-1.7) Lipase 139 U/L (73-393) Bedside Urine HCG, Qualitative Hcg positive (Negative) Coronavirus (COVID-19)(PCR) Negative (NEGATIVE) Test 09/01/19 05:00 Sodium Level 138 mmol/L (136-145) Potassium Level 3.8 mmol/L (3.5-5.1) Chloride Level 104 mmol/L (98-107) Carbon Dioxide Level 26 mmol/L (21-32) Anion Gap 8 (6-14) Blood Urea Nitrogen 9 mg/dL (7-20) Creatinine 0.7 mg/dL (0.6-1.0) Estimated GFR (Cockcroft-Gault) 96.4 BUN/Creatinine Ratio 13 (6-20) Glucose Level 136 mg/dL (70-99) Calcium Level 8.0 mg/dL (8.5-10.1) Total Bilirubin 0.5 mg/dL (0.2-1.0) Aspartate Amino Transf (AST/SGOT) 82 U/L (15-37) Alanine Aminotransferase (ALT/SGPT) 117 U/L (14-59) Alkaline Phosphatase 152 U/L (46-116) Total Protein 7.0 g/dL (6.4-8.2) Albumin 2.6 g/dL (3.4-5.0) Albumin/Globulin Ratio 0.6 (1.0-1.7) Laboratory Tests Test 09/01/19 05:00 Sodium Level 138 mmol/L (136-145) Potassium Level 3.8 mmol/L (3.5-5.1) Chloride Level 104 mmol/L (98-107) Carbon Dioxide Level 26 mmol/L (21-32) Anion Gap 8 (6-14) Blood Urea Nitrogen 9 mg/dL (7-20) Creatinine 0.7 mg/dL (0.6-1.0) Estimated GFR (Cockcroft-Gault) 96.4 BUN/Creatinine Ratio 13 (6-20) Glucose Level 136 mg/dL (70-99) Calcium Level 8.0 mg/dL (8.5-10.1) Total Bilirubin 0.5 mg/dL (0.2-1.0) Aspartate Amino Transf (AST/SGOT) 82 U/L (15-37) Alanine Aminotransferase (ALT/SGPT) 117 U/L (14-59) Alkaline Phosphatase 152 U/L (46-116) Total Protein 7.0 g/dL (6.4-8.2) Albumin 2.6 g/dL (3.4-5.0) Albumin/Globulin Ratio 0.6 (1.0-1.7) Problem List Problems Medical Problems: (1) Cholecystitis Status: Acute Assessment/Plan Status post laparoscopic cholecystectomy. Bilirubin normal this morning mildly elevated LFTs consistent with postoperative course Stable from surgical standpoint could go home Follow-up with Dr. Nance in 2 weeks Justicifation of Admission Dx: Justifications for Admission: Justification of Admission Dx: Yes WILTON NANCE MD Sep 01, 2019 08:21
--- NOTE | 2019-09-01 13:33 | SSS ---
ADMIT DATE: DATE OF DISCHARGE: 09/01/2019 CHIEF COMPLAINT: Abdominal pain. HISTORY OF PRESENT ILLNESS: The patient is a pleasant middle-aged female from [facility]. She basically presented last night with cholecystitis. She was taken for emergency laparoscopic cholecystectomy. This morning, she is being examined on the medical floor where they have started her diet and she is tentatively scheduled to go home this afternoon. PAST MEDICAL HISTORY: Benign. ALLERGIES: None. FAMILY HISTORY: Diabetes. SOCIAL HISTORY: She does not drink, smoke or take drugs. She is from [facility]. MEDICATIONS: Reviewed, please refer to the MRAD. REVIEW OF SYSTEMS: GENERAL: No history of weight change, weakness or fevers. SKIN: No bruising, hair changes or rashes. EYES: No blurred, double or loss of vision. NOSE AND THROAT: No history of nosebleeds, hoarseness or sore throat. HEART: No history of palpitations, chest pain or shortness of breath on exertion. LUNGS: Denies cough, hemoptysis, wheezing or shortness of breath. GASTROINTESTINAL: Denies changes in appetite, nausea, vomiting, diarrhea or constipation. GENITOURINARY: No history of frequency, urgency, hesitancy or nocturia. NEUROLOGIC: Denies history of numbness, tingling, tremor or weakness. PSYCHIATRIC: No history of panic, anxiety or depression. ENDOCRINE: No history of heat or cold intolerance, polyuria or polydipsia. EXTREMITIES: Denies muscle weakness, joint pain, pain on walking or stiffness. PHYSICAL EXAMINATION: VITALS: Within normal limits and are stable. GENERAL: No apparent distress. Alert and oriented. HEENT: Normal cephalic atraumatic, external auditory canals are patent. EYES: Extraocular muscles are intact, pupils are equally round and reactive to light and accommodation. MUSCULOSKELETAL: Well-developed, well-nourished, good range of motion. ENDOCRINE: No thyromegaly was palpated. LYMPHATICS: No cervical chain or axillary nodes were noted. HEMATOPOIETIC: No bruising. NECK: Supple, no JVD, no thyromegaly was noted. LUNGS: Clear to auscultation in all lung kruger without rhonchi or wheezing. HEART: RRR, S1, S2 present. Peripheral pulses intact, no obvious murmurs were noted. ABDOMEN: Soft, nontender. Positive bowel sounds no organomegaly, normal bowel sounds. EXTREMITIES: She has clean, dry, intact trocar sites. NEUROLOGIC: Normal speech, normal tone. A and O x 3, moves all extremities, no obvious focal deficits. PSYCHIATRIC: Normal affect, normal mood. Stable. SKIN: No ulcerations or rashes, good skin turgor, no jaundice. VASCULAR: Good capillary refill, neurovascular bundle appears to be intact. ASSESSMENT AND PLAN: Postoperative day #1 laparoscopic cholecystectomy. We will go ahead and discharge. DISPOSITION: Home. ACTIVITY: As tolerated. DIET: Low sodium. MEDICATIONS: Please see the MRAD. TOTAL TIME: 34 minutes. NIAL Lorelei KANG DO DR: CARMELITA/shelton JOB#: [id number] / [id number]
--- NOTE | 2019-09-01 16:25 | NUR ---
Pt. discharged to home with Rx, pt, and niece verbalized understanding of discharge instructions. Pt. also verbalized she is to not breastfeed while taking Percocet and to call to she when to resume breasfeeding. [facility] sites [facility]. Addendum: 09/01/19 at 1629 by RIC LITTLE RN Pt. refused use of blue training and development specialist phone, instructions given to niece, pt and .
--- NOTE | 2019-09-03 18:06 | PATHOLOGY ---
[facility] Accession Number: [id number] . 01 Material submitted: . gallbladder - GALLBLADDER WITH CONTENTS . 01 Clinical history: . cholecystitis . 02 Diagnosis: Gallbladder, laparoscopic cholecystectomy: - Cholelithiasis. - Cholesterolosis. - Chronic cholecystitis with increased eosinophils. . ([facility] [place]; 09/03/2019) [facility] 09/03/2019 1538 Local . 02 Comment: There is no evidence of malignancy. . ([facility] [place]; 09/03/2019) . 02 Electronically signed: . Misbah Madison MD, Pathologist NPI- [id number] . 01 Gross description: . The specimen is received in formalin labeled "Tanisha Loyola, gallbladder with contents" and consists of yellow-salmeron to pink-guaman and smooth gallbladder measuring 7.8 x 3.0 x 2.6 cm. The margin is inked black. Opening reveals a lumen filled with green bile and multiple fragmented to intact green yellow calculi measuring up to 1.9 cm. The mucosa is green with yellow stippling and focally pitted with an average wall thickness of 0.1 cm. No masses are identified. [employer]er sections are submitted in A1. ([facility]; 09/02/2019) SYU/SYU 09/02/2019 1640 Local . 02 Pathologist provided ICD-10: K80.10, K82.4 . 02 CPT . 328537 Specimen Comment: A courtesy copy of this report has been sent to [phone] Specimen Comment: [id number] Specimen Comment: Report sent to / DR RICARDO Performed at: [address], [place], [place] [id number] MD Puma Molina MD Phone: [phone] Performed at: [address] [id number] MD Misbah Madison MD Phone: [phone]
== END 2019-09-01 16:35 | disposition home or self-care (01) | DRG 769 ==
LOC: ER 00:13 → 4 NORTH 02:45
PROVIDERS: ADMIT Internal Medicine; ATTEND Internal Medicine
PROC: BF101ZZ Fluoroscopy of Bile Ducts using Low Osmolar Contrast (ICD-10-PCS; 2019-08-31)
PROC: 0FT44ZZ Resection of Gallbladder, Percutaneous Endoscopic Approach (ICD-10-PCS; principal; 2019-08-31 15:00)
DX: O99.63 Diseases of the digestive system complicating the puerperium (principal); K80.00 Calculus of gallbladder with acute cholecystitis without obstruction; K76.0 Fatty (change of) liver, not elsewhere classified; Z83.3 Family history of diabetes mellitus; Z87.442 Personal history of urinary calculi; Z20.828 Contact with and (suspected) exposure to other viral communicable diseases
CPT/HCPCS: 36415; 74177; 74300; 76705; 80053; 81001; 81025; 83605; 83690; 85025; 87086; 88304; 96374; 96375; A7015; J0330; J1100; J2250; J2270; J2370; J2405; J2543; J2704; J2710; J3010; J3490; J7030; J7120; Q9967; 99291-25; G0378; U0003-CS

== ENCOUNTER → 2020-02-10 | Outpatient (CLI) | payer OTHER ==
[2019-09-01 15:00] VITALS: BP 144/80
--- NOTE | 2020-02-10 08:13 | RAD ---
EXAM: Abdomen sonogram. HISTORY: Pain. TECHNIQUE: Sonographic imaging of the abdomen was performed. COMPARISON: CT dated 08/31/2019. FINDINGS: The liver is normal in size. No focal hepatic lesion is seen. There is slight echogenic vitaly er parenchyma. This is not within limits to suggest hepatic steatosis. The common bile duct is dilate d to a caliber of 14 mm. The gallbladder surgically absent. The kidneys are unremarkable. The spleen is normal in size. The aorta and vena cava are unremarkable. IMPRESSION: 1. Common bile duct dilatation. This may be due to reservoir effect status post cholecystectomy. MRCP may be useful if there is concern for a sonographically occult obstructing etiology. 2. Otherwise, unremarkable abdomen sonogram. Electronically signed by: Blanca Osorio MD (02/10/2020 8:11 AM) [id number]
== END ==
LOC: US 06:47
PROVIDERS: ATTEND Nurse Practitioner Gerontology
DX: R10.11 Right upper quadrant pain (principal); Z90.49 Acquired absence of other specified parts of digestive tract
CPT/HCPCS: 76700